=== PATIENT | female | born 1960 | race Caucasian/White ===

== ENCOUNTER 2016-04-04 17:59 | Emergency (ER) | payer SELFPAY ==
[~2016-04-04] VITALS: Ht 167.6 cm; Wt 72.6 kg
[~2016-04-04 17:59] MED LIST: ACHD5005 PO; ASP81CT PO; FLUO20CA25 PO; LEVOTHYROXIN; LEVOTHYROXIN PO; LOVA20TA2 PO
--- OUTSIDE RECORDS SUMMARY | 2016-04-04 18:06 | XMS REPORT ---
Author Author MIRZA WEBSTER [facility] eClinicalWorks Address Unknown Phone Unavailable Care Team Providers Care Type Proof Reproducer Name Role Phone MIRZA WEBSTER CP Unavailable Allergies No Known Allergies Problems Problem Type Condition Code Onset Dates Condition Status Problem Headache R51 Active Problem Hyperlipemia E78.5 Active Problem Anxiety F41.9 Active Problem History of long-term use of multiple prescription drugs Z92.29 Active Problem Chest pain R07.9 Active Problem Acute pain of right shoulder M25.511 Active Problem Chronic pain G89.29 Active Problem Acquired hypothyroidism E03.9 Active Problem Thyromegaly E04.9 Active Problem Fibromyalgia M79.7 Active Assessment Hyperkalemia E87.5 Active Problem Hyperkalemia E87.5 Active Problem Abnormal thyroid ultrasound R93.8 Active Medications No Known Medications Results No Known Results Summary Purpose eClinicalWorks Submission
--- NOTE | 2016-04-04 19:09 | ED Back Pain ---
General Chief Complaint: Back Problems Stated Complaint: BACK,LEG PAIN Nursing Triage Note: PT REPORTS FALLING BACKWARDS OUT OF THE SHOWER AND HITTING HER BACK ON THE TUB. SHE DENIES HITTING HER HEAD. SHE IS C/O R LOW BACK AND HIP PAIN RADIATING DOWN HER LEG. Nursing Sepsis Screen: No Definite Risk Source of Information: Patient Exam Limitations: No Limitations History of Present Illness Time Seen by Provider: 19:09 Initial Comments 55-year-old female patient presents to the emergency department with complaints of low back pain after hitting her back on the edge of the shower. Reports slipped on the wet floor. Denies hitting her head. Does complain of low back pain and right hip pain radiating down her leg. Location: Lumbar Spine, Paraspinous Muscles Timing/Duration: 1 Day Pain/Injury Location: Back Radiation: Buttocks (rt), Lower Legs (rt), Upper Legs (rt) Method of Injury: Fall Modifying Factors: Improves With Immobilization, Worse With Movement Associated Symptoms: muscle spasmsNo weakness, No numbness in legs/feet, No tingling in legs/feet, No sensory/motor loss, lower back painNo loss of bladder control, No loss of bowel control Allergies and Home Medications Allergies Coded Allergies: Codeine (Verified Allergy, Mild, 03/27/12) Home Medications 25 MCG PO DAILY (Reported) Aspirin 81 Mg Chew 81 MG PO DAILY (Reported) Fluoxetine Hcl 20 Mg Capsule 1 EACH PO DAILY (Reported) Hydrocodone Bit/Acetaminophen 1 Each Tablet #20 1 EACH PO Q6H PRN PRN (Reported ) Hydrocodone/Acetaminophen 1 Each Tablet #14 1 EACH PO Q4H PRN PRN PAIN Prescribed by: LUCIO POST on 04/04/162049 Lovastatin 20 Mg Tablet 1 EACH PO DAILY WITH SUPPER (Reported) Prednisone 20 Mg Tab #10 40 MG PO DAILY Prescribed by: LUCIO POST on 04/04/162049 Constitutional: No chills, No dizziness, No fever, No malaise EENTM: no symptoms reported Respiratory: no symptoms reported Cardiovascular: no symptoms reported Gastrointestinal: No abdominal pain, No constipation, No diarrhea, No nausea, No vomiting Genitourinary: No decreased output, No dysuria, No frequency, No hematuria, No pain Musculoskeletal: see HPI back pain joint painNo joint swelling, muscle pain muscle stiffnessNo neck pain Skin: No change in color, No lumps Psychiatric/Neurological: Denies Headache, Denies Numbness, Denies Paresthesia , Denies Seizure, Denies Tingling, Denies Weakness All Other Systems Reviewed Negative Unless Noted: Yes (Negative excepted noted.) Past Kfblaiz-Irhxkk-Msxhmc Hx Patient Social History Alcohol Use: Denies Use Recreational Drug Use: No Smoking Status: Former Smoker Type Used: Cigarettes Recent Foreign Travel: No Contact w/Someone Who Travel: No Recent Infectious Disease Expo: No Recent Hopitalizations: No Physical Abuse Screen: No Sexual Abuse: No Immunizations Up To Date Date of Pneumonia Vaccine: Dec 26, 2010 Surgeries HX Surgeries: Yes Surgeries: Abdominal, Hysterectomy, Tubal Ligation Respiratory Hx Respiratory Disorders: Yes Cardiovascular Hx Cardiac Disorders: No Neurological Hx Neurological Disorders: Yes Reproductive System Hx Reproductive Disorders: Yes Genitourinary Hx Genitourinary Disorders: No Gastrointestinal Hx Gastrointestinal Disorders: Yes Musculoskeletal Hx Musculoskeletal Disorders: Yes Musculoskeletal Disorders: Chronic Back Pain Endocrine Hx Endocrine Disorders: Yes HEENT HX ENT Disorders: No Psychosocial Hx Psychiatric Problems: Yes Blood Transfusions Hx Blood Disorders: No Reviewed Nursing Assessment Reviewed/Agree w Nursing PMH: Yes Family Medical History Significant Family History: No Pertinent Family Hx Physical Exam Vital Signs Capillary Refill : Less Than 3 Seconds General Appearance: No Apparent Distress Chronically ill HEENT: PERRL/EOMI Pharynx Normal Neck: Full Range of Motion Normal Inspection Non Tender Supple Cardiovascular: Regular Rate, Rhythm No Edema No Murmur Normal Peripheral Pulses Respiratory: Lungs Clear Normal Breath Sounds No Respiratory Distress Peripheral Pulses: 2+ Dorsalis Pedis (R), 2+ Left Dors-Pedis (L), 2+ Radial Pulses (R), 2+ Radial Pulses (L) Gastrointestinal: Normal Bowel Sounds No Organomegaly Non Tender SoftNo Distended Back: Normal Inspection Decreased Range of Motion Muscle Spasm (low back (R>L) ) Vertebral Tenderness (lumbar)No Other (no evidence of ecchymosis or swelling.) Extremity: Normal Capillary Refill Normal Inspection (no evidence of ecchymosis or swelling.) Normal Range of Motion No Pedal Edema Other (soft tissue tenderness rt posterior buttock, lateral thigh, and lower leg) Neurologic/Psychiatric: Alert Oriented x3 No Motor/Sensory Deficits Normal Mood/Affect casino change attendant II-XII Norm as Tested Skin: Normal Color Warm/DryNo Ecchymosis Progress/Results/Core Measures Results/Orders My Orders Orders-LUCIO POST Ct Lumbar Spine Wo (04/04/16 19:36) Pelvis (04/04/16 19:36) Ketorolac Injection (Toradol Injection) (04/04/16 19:36) Orphenadrine Injection (Norflex Injectio (04/04/16 19:36) Rx-Tramadol Hcl (Rx-Ultram) (04/04/16 20:57) Im/Sub-Q Injection Non-Ab Ed (04/04/16 ) Vital Signs/I&O Blood Pressure Mean: 101 Diagnostic Imaging Diagonstic Imaging: CT Plain Films/CT/US/NM/MRI: other (lumbar spine) Comments The reconstructed parasagittal images show the vertebral body heights and alignment to be generally within normal limits. The intervertebral disc spaces are fairly well-maintained. There is no fracture or acute bony abnormality evident. The axial images do suggest that there is mild trefoil stenosis at L4- 5. There also appears to be narrowing of the neural foramen on the right at this level due to a disc bulge. There is also a disc bulge eccentric to the right at L5-S1 and there is narrowing of the neural foramen on the right at this level as well. The remainder of the lumbar spine is unremarkable for spinal stenosis or nerve root encroachment. There is no sign of a paraspinal mass. IMPRESSION: 1. There is no evidence for an acute bony abnormality. 2. There is degenerative disc disease at L4-5 and L5-S1. There is trefoil stenosis at both of these levels and there is narrowing of the neural foramen on the right. If further imaging is desired, then MRI would be recommended. Dictated on workstation # [id number] Reviewed: Reviewed by Me (radiology report reviewed by me) Diagonstic Imaging: Xray Plain Films/CT/US/NM/MRI: pelvis Comments FINDINGS: There is no fracture, dislocation or acute bony abnormality evident. There is mild degenerative disease involving the hip and sacroiliac joints. The soft tissues are unremarkable. IMPRESSION: There is no evidence for an acute bony abnormality. Dictated by: Dictated on workstation # [id number] Reviewed: Reviewed by Me (radiology report reviewed by me) Departure Communication Progress Notes Diagnostic findings discussed with the patient. Proceed with discharge to home. Impression Impression: Primary Impression: Lumbar radiculopathy Disposition: 01 HOME, SELF-CARE Condition: Improved Departure-Patient Inst. Decision time for Depature: 20:48 Referrals: [facility] (PCP/Family) Primary Care Physician Patient Instructions: Radiculopathy (DC) Add. Discharge Instructions: All discharge instructions reviewed with patient and/or family. Voiced understanding. Medications as directed. Continue usual home meds. Ice pack or a heating pad as needed for pain. Follow-up with [facility] for recheck this week, call for appointment time. Return to the emergency department for worsened pain, numbness, weakness, bowel incontinence, bladder incontinence, or any other concerns. Scripts Hydrocodone/Acetaminophen (Hydrocodon -Acetaminophen 5-325)1 Each Tablet1 Each PO Q4H PRN PAIN #14 TAB Ref 0 Prov:LUCIO POST 04/04/16 Prednisone 20 Mg Tab40 Mg PO DAILY #10 TAB Ref 0 Prov:LUCIO POST 04/04/16 LUCIO POST Apr 04, 2016 19:09
[2016-04-04] MEDS ORDERED: KETOROLAC 60 MG/2 ML VIAL IM STA (19:36)
[2016-04-04] MEDS ORDERED: ORPHENADRINE 60 MG/2 ML (NORFLEX) AMP IM STA (19:36)
--- NOTE | 2016-04-04 20:10 | Diagnostic Imaging Report ---
PROCEDURE: CT lumbar spine without contrast. TECHNIQUE: Multiple contiguous axial images were obtained through the lumbar spine without the use of intravenous contrast. Sagittal and coronal reformations were then performed. INDICATION: Low back pain, fell There are no prior studies available for comparison. The reconstructed parasagittal images show the vertebral body heights and alignment to be generally within normal limits. The intervertebral disc spaces are fairly well-maintained. There is no fracture or acute bony abnormality evident. The axial images do suggest that there is mild trefoil stenosis at L4-5. There also appears to be narrowing of the neural foramen on the right at this level due to a disc bulge. There is also a disc bulge eccentric to the right at L5-S1 and there is narrowing of the neural foramen on the right at this level as well. There may be mild trefoil stenosis as well. The remainder of the lumbar spine is unremarkable for spinal stenosis or nerve root encroachment. There is no sign of a paraspinal mass. IMPRESSION: 1. There is no evidence for an acute bony abnormality. 2. There is degenerative disc disease at L4-5 and L5-S1. There is mild trefoil stenosis at both of these levels and there is narrowing of the neural foramen on the right. If further imaging is desired, then MRI would be recommended. Dictated by: Dictated on workstation # [id number]
--- NOTE | 2016-04-04 20:21 | Diagnostic Imaging Report ---
INDICATION: Fell. EXAMINATION: Pelvis. A single AP view was obtained. COMPARISON: There are no prior studies available for comparison. FINDINGS: There is no fracture, dislocation or acute bony abnormality evident. There is mild degenerative disease involving the hip and sacroiliac joints. The soft tissues are unremarkable. IMPRESSION: There is no evidence for an acute bony abnormality. Dictated by: Dictated on workstation # [id number]
[2016-04-04] MEDS ORDERED: HYDR-3812 PO (20:50)
[2016-04-04] MEDS ORDERED: CYCL10TA9 PO (20:50)
[2016-04-04] MEDS ORDERED: PRD20T PO (20:50)
[2016-04-04] MEDS ORDERED: RX-TRAMADOL 50 MG (ULTRAM) TAB PPK#4 PO STA (20:57)
[2016-04-04 21:05] VITALS: BP 144/80
== END 2016-04-04 21:05 | disposition home or self-care (01) ==
LOC: EDUNIT# 17:59 → ER 18:02
DX: M51.16 Intervertebral disc disorders with radiculopathy, lumbar region (principal); M48.06 Spinal stenosis, lumbar region; Z79.82 Long term (current) use of aspirin; Z79.899 Other long term (current) drug therapy; Z87.891 Personal history of nicotine dependence
CPT/HCPCS: 72131; 72170; 96372

== ENCOUNTER → 2018-05-12 | Outpatient (CLI) | payer OTHER ==
[~2018-05-12] MED LIST changes: +CATHETER FLUSH 10 ML SYR IV PRN; +CYCL10TA9 PO; +IOHEXOL 350 MG/ML 100 ML (OMNIPAQUE 350) VIAL IV ONE; +NS 100 ML (IVPB) BAG IV ONE; +PRD20T PO; +RECEIVED CONTRAST (Hold Metformin) IV SCH
--- NOTE | 2018-05-12 15:21 | Diagnostic Imaging Report ---
CLINICAL INDICATION: Patient with right side of neck mass 2 cm posterior to the mandibular arch. EXAM: CT scan of the neck soft tissue performed with 75 cc of Omnipaque 350 IV contrast. Coronal and sagittal reformatted images are created. COMPARISON: None. FINDINGS: There is a 1.6 cm x 2.0 cm x 1.9 cm (AP x Trans x CC) heterogeneously enhancing lobulated mass in the tail of the right parotid gland. This is seen beneath the BB marker. The remainder of the salivary glands are unremarkable. There is no other neck soft tissue mass seen. There is no significant neck lymphadenopathy. There is mild prominence of the posterior nasopharyngeal adenoid soft tissue, bilateral palatine tonsillar soft tissue likely related to patient body habitus or reactive. Otherwise the nasopharynx, oropharynx, hypopharynx, and laryngeal soft tissue structures are unremarkable. Dental streak artifact obscures portions of the oral cavity and adjacent soft tissue. Torus palatinus, and maxillaris interna and externa are seen. Thyroid gland is unremarkable. The neck vascular structures are unremarkable. Visualized upper lung hadley are clear. There are small degenerative spurs involving the cervical spine. There is mild mucosal thickening involving the left maxillary sinus. Visualized intracranial structures, temporal bone structures and orbits are unremarkable. IMPRESSION: 1: There is a 2.0 cm lobulated heterogeneously enhancing mass in the tail of the right parotid gland. 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 Since this lesion is unilateral, Warthin's tumor is suspected to be less likely. Pathologic lymph node is also suspected to be less likely. ENT consultation is suggested. 2: The remainder of this exam is unremarkable for patient's age. Dictated by: Dictated on workstation # [id number]
== END ==
LOC: RAD 14:25
PROVIDERS: ATTEND Nurse Practitioner Primary Care
DX: K11.8 Other diseases of salivary glands (principal); R22.1 Localized swelling, mass and lump, neck
CPT/HCPCS: 70491

== ENCOUNTER → 2018-05-28 | Outpatient (CLI) | payer OTHER ==
[~2018-05-28] MED LIST changes: -CATHETER FLUSH 10 ML SYR IV PRN; -IOHEXOL 350 MG/ML 100 ML (OMNIPAQUE 350) VIAL IV ONE; -NS 100 ML (IVPB) BAG IV ONE; -RECEIVED CONTRAST (Hold Metformin) IV SCH
--- NOTE | 2018-05-28 20:41 | Diagnostic Imaging Report ---
INDICATION: Routine screening. No prior mammograms are available for comparison. The current study was also evaluated with a Computer Aided Detection (CAD) system. FINDINGS: Scattered fibroglandular densities are identified bilaterally. There is a slightly nodular density identified in the outer portion of the left breast best seen on the CC view. This appears to be superiorly located on the MLO view. Additional views are recommended. Right breast is unremarkable. No suspicious calcifications are seen. Axillae are unremarkable. IMPRESSION: Left breast density. Additional views are recommended for further evaluation. ACR BI-RADS Category 0: Incomplete. (Needs additional imaging evaluation). Result letter will be mailed to the patient. Note: At least 10% of breast cancer is not imaged by mammography. Dictated by: Dictated on workstation # [id number]
== END ==
LOC: RAD 11:03
PROVIDERS: ATTEND Nurse Practitioner Primary Care
DX: Z12.31 Encounter for screening mammogram for malignant neoplasm of breast (principal)
CPT/HCPCS: 77067

== ENCOUNTER → 2018-06-16 | Outpatient (CLI) | payer OTHER ==
--- NOTE | 2018-06-16 18:23 | Diagnostic Imaging Report ---
INDICATION: Left breast density. EXAM: Ultrasound Breast, limited, left COMPARISON is made with a diagnostic mammogram performed earlier same day. FINDINGS: Sonographic interrogation of the upper outer left breast was performed. At the 2 o'clock location, 8 cm from the nipple, there is a smoothly marginated ovoid hypoechoic nodule measuring 7 mm x 3 mm x 7 mm. No internal vascularity is seen. This has fairly benign features. No other masses are detected. IMPRESSION: BI-RADS 3 Smoothly marginated hypoechoic nodule 2 o'clock location in the left breast, 8 cm from the nipple. This most likely accounts for the nodular density noted mammographically. This has benign features. Even so, followup left mammogram and left breast ultrasound in 6 months is recommended to confirm stability. ACR BI-RADS Category 3: Probably benign findings. Result letter will be mailed to the patient. Note: At least 10% of breast cancer is not imaged by mammography. Dictated by: Dictated on workstation # [id number]
--- NOTE | 2018-06-16 19:00 | Diagnostic Imaging Report ---
INDICATION: Left breast density. Patient presents for additional views. COMPARISON: Correlation is made with prior mammogram from 05/28/2018. TECHNIQUE: Unilateral left 2D and 3D diagnostic mammography was performed including spot compression CC and ML as well as conventional 90 degree lateral view. The current study was also evaluated with a Computer Aided Detection (CAD) system. FINDINGS: Additional views confirm a nodular density in the upper-outer left breast, approximately 10 cm from the nipple. No suspicious calcifications are seen. Further evaluation with ultrasound is recommended. IMPRESSION: Nodular density in the upper-outer left breast mid depth, approximately 10 cm from the nipple. Further evaluation with ultrasound is recommended and will be performed today. ACR BI-RADS Category 0: Incomplete. (Needs additional imaging evaluation). Result letter will be mailed to the patient. Note: At least 10% of breast cancer is not imaged by mammography. Dictated by: Dictated on workstation # [id number]
== END ==
LOC: RAD 12:32
PROVIDERS: ATTEND Nurse Practitioner Primary Care
DX: N63.21 Unspecified lump in the left breast, upper outer quadrant (principal)
CPT/HCPCS: 76642